=== PATIENT | male | born 1945 | race Caucasian/White ===

== ENCOUNTER → 2023-07-06 16:02 | Outpatient (CLI) | payer OTHER, SELFPAY ==
--- NOTE | 2023-07-06 16:18 | DI.RAD.S_ITS ---
PROCEDURE: XR CHEST 2V INDICATIONS: SOB/ISCHEMIC CARDIOMYOPATHY/NONRHEUMATIC MITRAL VALVE REGURG TECHNIQUE: 2 views of the chest were acquired. COMPARISON: [facility], CR, XR CHEST 2 VIEWS, 10/15/2020, 13:47. FINDINGS: Surgical changes and devices: Probable coronary stent. Right shoulder anchors. Lungs and pleura: Prominent pulmonary interstitial markings. No consolidation. No pleural effusions or pneumothorax. Mediastinum: Mediastinal contours are normal. Heart size is within normal limits. Bones and chest wall: No suspicious bony abnormalities. Soft tissues appear unremarkable. IMPRESSION: Prominent pulmonary interstitial markings. Pulmonary vasculature engorgement, atelectasis, or scarring could have this appearance. Dictated by: Arthur Jewell M.D. on 07/06/2023 at 16:40 Approved by: Arthur Jewell M.D. on 07/06/2023 at 16:48
[2023-07-06 20:19] LABS: Alanine Aminotransferase 26 IU/L (<50); Albumin 4.3 g/dL (3.5-5.0); Albumin Globulin Ratio 1.4 (1.0-2.8); Alkaline Phosphatase 86 U/L (38-126); Aspartate Aminotransferase 37 IU/L (17-59); Bilirubin Total 0.6 mg/dL (0.2-1.3); Blood Urea Nitrogen 29 mg/dL (9-20); Calcium 10.1 mg/dL (8.4-10.2); Carbon Dioxide 26 mmol/L (22-32); Chloride 103 mmol/L (98-107); Estimated Glomerular Filt Rate > 60 mL/min (>60); Glucose 127 mg/dL (80-110); HEMOLYSIS 27 (0-50); Potassium 4.8 mmol/L (3.4-5.1); Sodium 139 mmol/L (137-145); Total Protein 7.3 g/dL (6.3-8.2)
[2023-07-06 20:28] LABS: NT-proBNP (BNP-Adult 18+) 842 pg/mL (<450)
== END ==
PROVIDERS: Referring Provider Nurse Practitioner; Visit Provider Nurse Practitioner
DX: I34.0 Nonrheumatic mitral (valve) insufficiency (principal); I25.5 Ischemic cardiomyopathy; R06.02 Shortness of breath
CPT/HCPCS: 36415; 71046; 80053; 83880